=== PATIENT | male | born 1940 | race Caucasian/White ===

== ENCOUNTER → 2021-02-01 | Outpatient (CLI) | payer MEDICARE, BC ==
--- NOTE | 2021-02-01 17:50 | REPVR ---
PROCEDURE INFORMATION: Exam: MR Lumbar Spine Without Contrast Exam date and time: 02/01/2021 12:48 PM Age: 80 years old Clinical indication: Low back pain; Additional info: Lbp R/O hnp stenosis TECHNIQUE: Imaging protocol: Multiplanar magnetic resonance images of the lumbar spine without intravenous contrast. COMPARISON: No relevant prior studies available. FINDINGS: Vertebrae: Vertebral body heights are intact. Alignment is maintained. No pars defect is identified. Spinal cord: The conus is unremarkable in appearance, with its tip at the T12-L1 level. Multilevel findings: There are varying degrees of disc desiccation indicating intervertebral disc degeneration. Variable degenerative endplate changes are also present. L1-L2: Minimal bulge without significant neural foraminal narrowing or spinal stenosis. L2-L3: Small bulge leading to very mild bilateral neural foraminal narrowing without significant spinal stenosis. L3-L4: Small bulge combining with facet arthrosis to lead to very mild right and mild left neural foraminal narrowing without significant spinal stenosis. L4-L5: Disc osteophyte complex combining with facet arthrosis and ligamentum flavum hypertrophy to lead to mild to moderate right and mild left neural foraminal narrowing with very mild narrowing of the bilateral lateral recesses and borderline central canal stenosis. L5-S1: Disc osteophyte complex combining with facet arthrosis to lead to mild bilateral neural foraminal narrowing without significant spinal stenosis. Soft tissues: Unremarkable. IMPRESSION: Multilevel disc desiccation indicating intervertebral disk degeneration with disc displacements as described. COMMENTS: If surgery is considered, recommend level confirmation. Electronically signed by: Richard Davidson On 02/01/2021 17:50:03 PM
== END ==
LOC: M PLARAD 10:58
PROVIDERS: ATTEND Orthopaedic Surgery
DX: M54.5 Low back pain (principal)

== ENCOUNTER → 2021-03-26 | Outpatient (CLI) | payer MEDICARE, BC ==
--- NOTE | 2021-03-26 17:36 | REP ---
INDICATION: PAIN IN RIGHT LOWER LEG. COMPARISON: None. TECHNIQUE: Multiple ultrasonographic images of the deep venous structures of the right lower extremity were obtained from the inguinal ligament to the ankle. Venous compression techniques, color doppler imaging, and augmentation techniques were also obtained where appropriate. As per the ACR guidelines the anterior tibial vein can not be effectively evaluated. Only compression techniques in the calf on the peroneal and posterior tibial veins was attempted/performed. FINDINGS: There is no abnormal echogenic material seen within any of the visualized deep venous structures that would suggest acute thrombosis. Coaptation is unremarkable throughout. Doppler interrogation shows an expected response to respiratory variability and augmentation in the thigh. Compression techniques in the calf were unobtainable. The color flow images show what appears to be a normal vascular pattern throughout the thigh. IMPRESSION: There is no ultrasonographic evidence of deep venous thrombosis involving any of the visualized deep venous structures of the right lower extremity as described above. Due to technical parameters calf vein DVT can not be ruled out. <Electronically signed by Lacho Lechuga > 03/26/21 [id number]
== END ==
LOC: M RAD 16:35
PROVIDERS: ATTEND Physician Assistant
DX: M79.661 Pain in right lower leg (principal)

== ENCOUNTER → 2023-11-18 | Outpatient (CLI) | payer MEDICARE, BC ==
[2023-11-18 14:59] LABS: HEMATOCRIT 47.9 % (42.0-52.0); HEMOGLOBIN 16.4 g/dl (13.5-17.5); MEAN CORPUSCULAR HEMOGLOBIN 31.5 pg (27.0-33.0); MEAN CORPUSCULAR HGB CONC 34.2 g/dl (32.0-36.5); MEAN CORPUSCULAR VOLUME 92.1 fl (80.0-96.0); PLATELET COUNT, AUTOMATED 121 10^3/uL (150-450)
[2023-11-18 15:12] LABS: INR 1.25; PARTIAL THROMBOPLASTIN TIME 30.5 SECONDS (24.8-34.2); PROTHROMBIN TIME 15.3 SECONDS (12.5-14.5)
[2023-11-18 15:27] LABS: ALBUMIN 3.2 G/DL (3.2-5.2); BILIRUBIN,TOTAL 1.1 MG/DL (0.3-1.2); CALCIUM LEVEL 9.4 MG/DL (8.3-10.6); CREATININE FOR GFR 1.69 MG/DL (0.70-1.30); GLOMERULAR FILTRATION RATE 41.5 (>35); POTASSIUM SERUM 4.3 MMOL/L (3.5-5.1); TOTAL PROTEIN 6.8 G/DL (5.7-8.2)
== END ==
LOC: M LAB 14:31
PROVIDERS: ATTEND Nurse Practitioner Family
DX: D49.4 Neoplasm of unspecified behavior of bladder (principal)

== ENCOUNTER → 2023-11-26 | Outpatient (CLI) | payer MEDICARE, BC ==
[~2023-11-26] MED LIST: ISOVUE-370 76% 100ML VIAL ONE
== END ==
LOC: M PLAIMG 12:52
PROVIDERS: ATTEND Nurse Practitioner Family
DX: D49.4 Neoplasm of unspecified behavior of bladder (principal); R31.0 Gross hematuria
CPT/HCPCS: 74178; Q9967

== ENCOUNTER → 2024-04-25 | Outpatient (REF) | payer MEDICARE, BC ==
[2024-04-25 18:04] LABS: PERCENT SATURATION 39.4 % (19.7-50.0)
[2024-04-25 18:06] LABS: FERRITIN 1049.6 NG/ML (10.5-307.3)
== END ==
LOC: M LAB REF 16:29
PROVIDERS: ATTEND Internal Medicine
DX: D64.9 Anemia, unspecified (principal)

== ENCOUNTER 2024-05-09 22:14 | Emergency (ER) | payer MEDICARE, BC ==
[~2024-05-09] VITALS: Ht 180.3 cm; Wt 116.8 kg
[2024-05-09 22:29] VITALS: TEMP 98
[2024-05-09] MEDS: NS 500 ML IV ONE (22:35)
[2024-05-09] MEDS ORDERED: HYDROMORPHONE HCL 0.5 MG/ 0.5 ML SYRINGE IV PRN (22:45)
[2024-05-09 23:22] LABS: BASO % 0.5 % (0.0-1.0); EOS # 0.3 10^3/uL (0.0-0.5); EOS % 4.3 % (0.0-3.0); HEMATOCRIT 50.8 % (42.0-52.0); LYMPH # 2.7 10^3/uL (1.5-5.0); LYMPH % 35.7 % (24.0-44.0); MEAN CORPUSCULAR HEMOGLOBIN 31.6 pg (27.0-33.0); MEAN CORPUSCULAR HGB CONC 33.5 g/dl (32.0-36.5); MEAN CORPUSCULAR VOLUME 94.4 fl (80.0-96.0); MONO % 13.5 % (2.0-8.0); NEUTROPHILS # 3.4 10^3/uL (1.5-8.5); NEUTROPHILS % 45.9 % (36.0-66.0); PLATELET COUNT, AUTOMATED 117 10^3/uL (150-450); RED BLOOD COUNT 5.38 10^6/uL (4.30-6.10); WHITE BLOOD COUNT 7.5 10^3/uL (4.0-10.0)
[2024-05-09 23:49] LABS: BLOOD UREA NITROGEN 20 MG/DL (9-23); CARBON DIOXIDE LEVEL 24 MMOL/L (20-31); CHLORIDE LEVEL 112 MMOL/L (98-107); CREATININE FOR GFR 1.15 MG/DL (0.70-1.30); GLOMERULAR FILTRATION RATE > 60.0 (>35); GLUCOSE, FASTING 115 MG/DL (74-106); POTASSIUM SERUM 4.4 MMOL/L (3.5-5.1); SODIUM LEVEL 144 MMOL/L (136-145)
[2024-05-09] MEDS ORDERED: ISOVUE-370 76% 100ML VIAL As Ordered ONE (23:52)
[2024-05-10] MEDS: oxyBUTYnin 5 MG TAB PO STA (01:21)
[2024-05-10] MEDS: cefTRIAXone SOD 2 GM in D5W MINI-BAG PLUS 50 ML IV ONE (01:22)
[2024-05-10] MEDS ORDERED: OXYB5TAB14 PO (02:17)
[2024-05-10] MEDS ORDERED: CEFP200T PO (02:17)
[2024-05-10 02:41] VITALS: BP 151/72; O2SAT 98
== END 2024-05-10 02:44 | disposition home or self-care (01) ==
LOC: M ED 22:14 → EDBD 22:14 → M ED 05-10 02:44
DX: N39.0 Urinary tract infection, site not specified (principal); R30.1 Vesical tenesmus; I10 Essential (primary) hypertension; E78.5 Hyperlipidemia, unspecified; N40.0 Benign prostatic hyperplasia without lower urinary tract symptoms; Z85.51 Personal history of malignant neoplasm of bladder; Z88.8 Allergy status to other drugs, medicaments and biological substances; Z79.899 Other long term (current) drug therapy
CPT/HCPCS: 74177; 80048; 81001; 85025; 87086; 96360; 96361; 96365; 99284; J0696; Q9967

== ENCOUNTER → 2024-06-29 | Outpatient (REF) | payer MEDICARE, BC ==
[~2024-06-29] MED LIST changes: +CEFP200T PO; -ISOVUE-370 76% 100ML VIAL ONE; +OXYB5TAB14 PO
[2024-06-29 18:49] LABS: PERCENT SATURATION 30.6 % (19.7-50.0)
[2024-06-29 18:53] LABS: FERRITIN 427.4 NG/ML (10.5-307.3)
== END ==
LOC: M LAB REF 17:45
PROVIDERS: ATTEND Internal Medicine
DX: R53.83 Other fatigue (principal); D50.9 Iron deficiency anemia, unspecified

== ENCOUNTER 2024-09-29 14:50 | Inpatient (IN) | payer MEDICARE, BC ==
[~2024-09-29] VITALS: Ht 180.3 cm; Wt 115.4 kg
[2024-09-29] MEDS ORDERED: ELIQ5TAB PO (15:18)
[2024-09-29] MEDS ORDERED: HYDR12.55 PO (15:18)
[2024-09-29] MEDS ORDERED: METO1TAB32 PO (15:18)
[2024-09-29] MEDS ORDERED: CEPH500C PO (15:18)
[2024-09-29] MEDS ORDERED: ATOR40TA75 PO (15:18)
[2024-09-29] MEDS ORDERED: EZET10TA21 PO (15:18)
[2024-09-29] MEDS ORDERED: GABA-1635 PO (15:18)
[2024-09-29] MEDS ORDERED: LOSA50TA28 PO (15:18)
[2024-09-29 16:15] LABS: BASO % 0.4 % (0.0-1.0); EOS # 0.3 10^3/uL (0.0-0.5); EOS % 2.5 % (0.0-3.0); HEMATOCRIT 47.6 % (42.0-52.0); HEMOGLOBIN 16.1 g/dl (13.5-17.5); LYMPH # 1.9 10^3/uL (1.5-5.0); LYMPH % 17.7 % (24.0-44.0); MEAN CORPUSCULAR HEMOGLOBIN 31.1 pg (27.0-33.0); MEAN CORPUSCULAR HGB CONC 33.8 g/dl (32.0-36.5); MEAN CORPUSCULAR VOLUME 91.9 fl (80.0-96.0); MONO # 1.3 10^3/uL (0.0-0.8); MONO % 12.1 % (2.0-8.0); NEUTROPHILS # 7.2 10^3/uL (1.5-8.5); PLATELET COUNT, AUTOMATED 151 10^3/uL (150-450); RED BLOOD COUNT 5.18 10^6/uL (4.30-6.10); WHITE BLOOD COUNT 10.7 10^3/uL (4.0-10.0)
[2024-09-29 16:23] LABS: ERYTHROCYTE SEDIMENTATION RATE 48 mm/hr (0-20)
[2024-09-29 16:43] LABS: BLOOD UREA NITROGEN 19 MG/DL (9-23); C REACTIVE PROTEIN QUANTITATIV 2.19 MG/DL (<1.0); CALCIUM LEVEL 8.7 MG/DL (8.3-10.6); CARBON DIOXIDE LEVEL 28 MMOL/L (20-31); CHLORIDE LEVEL 103 MMOL/L (98-107); CREATININE FOR GFR 1.02 MG/DL (0.70-1.30); GLOMERULAR FILTRATION RATE > 60.0 (>35); GLUCOSE, FASTING 109 MG/DL (74-106); POTASSIUM SERUM 3.9 MMOL/L (3.5-5.1); SODIUM LEVEL 140 MMOL/L (136-145)
[2024-09-29] MEDS ORDERED: VANCOMYCIN HCL 1,500 MG in IV FLUID PLACE HOLDER 1 EA IV ONE (19:45)
[2024-09-29] MEDS: PIPERACILLIN/TAZOBACTAM SOD 4.5 GM in DEXTROSE 5% (D5W) ADV/MINI-BAG 50 ML IV ONE (21:01)
[2024-09-29] MEDS: VANCOMYCIN HCL 1,500 MG, VIAL MATE ADAPTER 1 EACH in NS 500 ML IV SCH (22:20)
[2024-09-30] MEDS ORDERED: MOM 30ML SUSPENSION UDC PO PRN (00:15)
[2024-09-30] MEDS ORDERED: MAALOX 30 ML SUSP *UDC PO PRN (00:15)
[2024-09-30] MEDS ORDERED: CALC250T PO (00:20)
[2024-09-30] MEDS ORDERED: B-COTAB10 PO (00:20)
[2024-09-30] MEDS ORDERED: FERR1TAB8 PO (00:20)
[2024-09-30] MEDS ORDERED: CHOL25TA2 PO (00:20)
[2024-09-30] MEDS ORDERED: HOME MED LIST COMPLETE! XX SCH (00:20)
[2024-09-30] MEDS ORDERED: GNP1000T11 PO (00:20)
[2024-09-30] MEDS ORDERED: OXYB5TAB14 PO (00:20)
[2024-09-30] MEDS ORDERED: VITA-259 PO (00:20)
[2024-09-30] MEDS: APIXABAN 5 MG TAB (ELIQUIS) PO SCH (00:50)
[2024-09-30] MEDS: GABAPENTIN 400MG CAP PO SCH (00:50)
[2024-09-30] MEDS: ceFAZolin SOD 2 GM in IV 1 EA IV SCH (00:51)
[2024-09-30] MEDS: CLOTRIMAZOLE 1% TOPICAL CREAM 30GM TOP SCH (01:01)
[2024-09-30 03:08] VITALS: BP 168/80; TEMP 97.7; O2SAT 96
[2024-09-30 08:15] VITALS: BP 140/71; TEMP 97.3; O2SAT 96
[2024-09-30] MEDS: EZETIMIBE 10MG TABLET (ZETIA) PO SCH (08:22)
[2024-09-30] MEDS: oxyBUTYnin 5 MG TAB PO SCH (08:23)
[2024-09-30] MEDS: hydroCHLOROthiazide 12.5 MG CAPSULE PO SCH (08:23)
[2024-09-30] MEDS: METOPROLOL SUCC *XL* 25MG TAB (TopROL *XL*) PO SCH (08:24)
[2024-09-30] MEDS: DOCUSATE SODIUM 100MG CAPSULE PO SCH (08:24)
[2024-09-30] MEDS ORDERED: LOSARTAN 50MG TABLET PO SCH (09:00)
[2024-09-30] MEDS: VITAMIN E 400 INTERNATIONAL UNITS CAP PO SCH (11:01)
[2024-09-30] MEDS: ACETAMINOPHEN 325 MG TAB PO PRN (11:38)
[2024-09-30 12:00] VITALS: BP 160/86; TEMP 97.3; O2SAT 98
[2024-09-30] MEDS ORDERED: NALOXONE INJ 0.4MG/1ML VIAL IV PRN (12:45)
[2024-09-30] MEDS: PERCOCET 5MG/325MG TAB PO PRN (13:12)
[2024-09-30] MEDS: NYSTATIN 100,000 UNITS/GM TOPICAL PWD 15GM TOP SCH (13:14)
[2024-09-30 14:30] VITALS: BP 142/72
[2024-09-30 14:53] LABS: BASO % 0.4 % (0.0-1.0); EOS # 0.4 10^3/uL (0.0-0.5); EOS % 3.4 % (0.0-3.0); HEMATOCRIT 46.1 % (42.0-52.0); HEMOGLOBIN 15.3 g/dl (13.5-17.5); LYMPH # 1.6 10^3/uL (1.5-5.0); LYMPH % 14.1 % (24.0-44.0); MEAN CORPUSCULAR HEMOGLOBIN 31.5 pg (27.0-33.0); MEAN CORPUSCULAR HGB CONC 33.2 g/dl (32.0-36.5); MEAN CORPUSCULAR VOLUME 94.9 fl (80.0-96.0); MONO # 1.4 10^3/uL (0.0-0.8); MONO % 12.2 % (2.0-8.0); NEUTROPHILS # 7.7 10^3/uL (1.5-8.5); NEUTROPHILS % 69.5 % (36.0-66.0); PLATELET COUNT, AUTOMATED 140 10^3/uL (150-450); RED BLOOD COUNT 4.86 10^6/uL (4.30-6.10)
[2024-09-30 15:18] LABS: BLOOD UREA NITROGEN 18 MG/DL (9-23); CALCIUM LEVEL 8.9 MG/DL (8.3-10.6); CARBON DIOXIDE LEVEL 30 MMOL/L (20-31); CHLORIDE LEVEL 106 MMOL/L (98-107); CREATININE FOR GFR 0.91 MG/DL (0.70-1.30); GLOMERULAR FILTRATION RATE > 60.0 (>35); GLUCOSE, FASTING 105 MG/DL (74-106); POTASSIUM SERUM 3.9 MMOL/L (3.5-5.1); SODIUM LEVEL 144 MMOL/L (136-145)
[2024-09-30] MEDS: BACLOFEN 5MG PER 1/2 TABLET PO ONE (15:59)
[2024-09-30 20:00] VITALS: BP 159/88; TEMP 97.5; O2SAT 96
[2024-09-30] MEDS: ATORVASTATIN 20 MG TAB PO SCH (21:43)
[2024-09-30] MEDS: LOSARTAN 50MG TABLET PO SCH (21:44)
[2024-10-01 04:00] VITALS: BP 137/91; TEMP 97.9; O2SAT 94
[2024-10-01 06:08] LABS: HEMATOCRIT 46.4 % (42.0-52.0); HEMOGLOBIN 15.4 g/dl (13.5-17.5); MEAN CORPUSCULAR HEMOGLOBIN 31.4 pg (27.0-33.0); MEAN CORPUSCULAR HGB CONC 33.2 g/dl (32.0-36.5); MEAN CORPUSCULAR VOLUME 94.5 fl (80.0-96.0); PLATELET COUNT, AUTOMATED 154 10^3/uL (150-450); RED BLOOD COUNT 4.91 10^6/uL (4.30-6.10); WHITE BLOOD COUNT 11.7 10^3/uL (4.0-10.0)
[2024-10-01 06:42] LABS: BLOOD UREA NITROGEN 16 MG/DL (9-23); CALCIUM LEVEL 8.5 MG/DL (8.3-10.6); CARBON DIOXIDE LEVEL 28 MMOL/L (20-31); CHLORIDE LEVEL 104 MMOL/L (98-107); CREATININE FOR GFR 0.99 MG/DL (0.70-1.30); GLOMERULAR FILTRATION RATE > 60.0 (>35); GLUCOSE, FASTING 102 MG/DL (74-106); MAGNESIUM LEVEL 1.9 MG/DL (1.8-2.4); POTASSIUM SERUM 3.7 MMOL/L (3.5-5.1); SODIUM LEVEL 143 MMOL/L (136-145)
[2024-10-01 12:00] VITALS: BP 120/68; TEMP 97.7; O2SAT 97
[2024-10-01 20:45] VITALS: BP 182/91; TEMP 99; O2SAT 95
[2024-10-01 20:48] VITALS: BP 166/72
[2024-10-01 23:30] VITALS: TEMP 97.6
[2024-10-02 04:35] VITALS: BP 129/60; TEMP 97.6; O2SAT 98
[2024-10-02] MEDS ORDERED: VANCOMYCIN HCL 1,000 MG in IV FLUID PLACE HOLDER 1 EA IV SCH (08:30)
[2024-10-02 08:54] LABS: BASO # 0.1 10^3/uL (0.0-0.2); BASO % 0.4 % (0.0-1.0); EOS # 0.6 10^3/uL (0.0-0.5); EOS % 4.7 % (0.0-3.0); HEMATOCRIT 49.7 % (42.0-52.0); HEMOGLOBIN 16.3 g/dl (13.5-17.5); LYMPH # 1.7 10^3/uL (1.5-5.0); LYMPH % 13.3 % (24.0-44.0); MEAN CORPUSCULAR HGB CONC 32.8 g/dl (32.0-36.5); MEAN CORPUSCULAR VOLUME 94.5 fl (80.0-96.0); MONO # 1.7 10^3/uL (0.0-0.8); MONO % 13.6 % (2.0-8.0); NEUTROPHILS # 8.6 10^3/uL (1.5-8.5); NEUTROPHILS % 67.7 % (36.0-66.0); PLATELET COUNT, AUTOMATED 168 10^3/uL (150-450); RED BLOOD COUNT 5.26 10^6/uL (4.30-6.10); WHITE BLOOD COUNT 12.6 10^3/uL (4.0-10.0)
[2024-10-02 09:00] LABS: ERYTHROCYTE SEDIMENTATION RATE 62 mm/hr (0-20)
[2024-10-02 09:23] LABS: BLOOD UREA NITROGEN 19 MG/DL (9-23); C REACTIVE PROTEIN QUANTITATIV 21.11 MG/DL (<1.0); CALCIUM LEVEL 8.5 MG/DL (8.3-10.6); CARBON DIOXIDE LEVEL 29 MMOL/L (20-31); CHLORIDE LEVEL 103 MMOL/L (98-107); CREATININE FOR GFR 0.92 MG/DL (0.70-1.30); GLOMERULAR FILTRATION RATE > 60.0 (>35); GLUCOSE, FASTING 102 MG/DL (74-106); POTASSIUM SERUM 3.4 MMOL/L (3.5-5.1); SODIUM LEVEL 141 MMOL/L (136-145)
[2024-10-02] MEDS: cefTRIAXone SOD 1 GM in DEXTROSE 5% (D5W) ADV/MINI-BAG 50 ML IV SCH (09:32)
[2024-10-02 09:35] LABS: PROCALCITONIN 0.14 ng/ml
[2024-10-02] MEDS: PERCOCET 5MG/325MG TAB PO PRN (09:36)
[2024-10-02] MEDS: VANCOMYCIN HCL 1,000 MG, VIAL MATE ADAPTER 1 EACH in NS 250 ML IV ONE (10:28)
[2024-10-02 12:00] VITALS: BP 145/70; TEMP 97.2; O2SAT 96
[2024-10-02] MEDS: VANCOMYCIN HCL 750 MG, VIAL MATE ADAPTER 1 EACH in NS 250 ML IV SCH (16:00)
[2024-10-02] MEDS: POTASSIUM CHLORIDE 10MEQ SR TABLET PO ONE (16:00)
[2024-10-02] MEDS: diphenhydrAMINE CREAM 30GM TOP SCH (18:05)
[2024-10-02 20:25] VITALS: BP 172/90; TEMP 97.9; O2SAT 97
[2024-10-02] MEDS: METOPROLOL TART 25 MG TABLET PO ONE (21:24)
[2024-10-03 03:56] VITALS: BP 155/77; TEMP 97.3; O2SAT 94
[2024-10-03] MEDS: METOPROLOL TART 25 MG TABLET PO SCH (05:45)
[2024-10-03 07:43] LABS: BASO # 0.1 10^3/uL (0.0-0.2); BASO % 0.4 % (0.0-1.0); EOS # 0.9 10^3/uL (0.0-0.5); EOS % 7.6 % (0.0-3.0); HEMATOCRIT 47.7 % (42.0-52.0); HEMOGLOBIN 15.7 g/dl (13.5-17.5); LYMPH # 1.5 10^3/uL (1.5-5.0); LYMPH % 13.3 % (24.0-44.0); MEAN CORPUSCULAR HEMOGLOBIN 31.2 pg (27.0-33.0); MEAN CORPUSCULAR HGB CONC 32.9 g/dl (32.0-36.5); MEAN CORPUSCULAR VOLUME 94.6 fl (80.0-96.0); MONO # 1.4 10^3/uL (0.0-0.8); MONO % 12.1 % (2.0-8.0); NEUTROPHILS # 7.5 10^3/uL (1.5-8.5); NEUTROPHILS % 66.3 % (36.0-66.0); PLATELET COUNT, AUTOMATED 178 10^3/uL (150-450); RED BLOOD COUNT 5.04 10^6/uL (4.30-6.10); WHITE BLOOD COUNT 11.3 10^3/uL (4.0-10.0)
[2024-10-03 08:08] LABS: BLOOD UREA NITROGEN 19 MG/DL (9-23); CALCIUM LEVEL 8.4 MG/DL (8.3-10.6); CARBON DIOXIDE LEVEL 30 MMOL/L (20-31); CHLORIDE LEVEL 104 MMOL/L (98-107); CREATININE FOR GFR 0.86 MG/DL (0.70-1.30); GLOMERULAR FILTRATION RATE > 60.0 (>35); GLUCOSE, FASTING 86 MG/DL (74-106); POTASSIUM SERUM 3.5 MMOL/L (3.5-5.1); SODIUM LEVEL 142 MMOL/L (136-145)
[2024-10-03 12:00] VITALS: BP 139/68; TEMP 97.3; O2SAT 100
[2024-10-03] MEDS ORDERED: diphenhydrAMINE CREAM 30GM TOP SCH (13:00)
[2024-10-03] MEDS: TRIAMCINOLONE ACET 0.1% OINTMENT 80GM TOP SCH (13:51)
[2024-10-03] MEDS: diphenhydrAMINE CREAM 30GM TOP SCH (13:51)
[2024-10-03] MEDS: VANCOMYCIN HCL 1,000 MG, VIAL MATE ADAPTER 1 EACH in NS 250 ML IV SCH (17:31)
[2024-10-03 20:35] VITALS: BP 149/64; TEMP 97.7; O2SAT 96
[2024-10-04 04:01] VITALS: BP 141/67; TEMP 97.3; O2SAT 94
[2024-10-04 05:23] LABS: BASO # 0.1 10^3/uL (0.0-0.2); BASO % 0.7 % (0.0-1.0); EOS # 0.9 10^3/uL (0.0-0.5); EOS % 8.5 % (0.0-3.0); HEMATOCRIT 46.9 % (42.0-52.0); HEMOGLOBIN 15.6 g/dl (13.5-17.5); LYMPH # 1.6 10^3/uL (1.5-5.0); MEAN CORPUSCULAR HEMOGLOBIN 30.9 pg (27.0-33.0); MEAN CORPUSCULAR HGB CONC 33.3 g/dl (32.0-36.5); MEAN CORPUSCULAR VOLUME 92.9 fl (80.0-96.0); MONO # 1.4 10^3/uL (0.0-0.8); MONO % 12.6 % (2.0-8.0); NEUTROPHILS # 6.8 10^3/uL (1.5-8.5); PLATELET COUNT, AUTOMATED 199 10^3/uL (150-450); RED BLOOD COUNT 5.05 10^6/uL (4.30-6.10); WHITE BLOOD COUNT 10.7 10^3/uL (4.0-10.0)
[2024-10-04 05:49] LABS: BLOOD UREA NITROGEN 22 MG/DL (9-23); CALCIUM LEVEL 8.4 MG/DL (8.3-10.6); CARBON DIOXIDE LEVEL 28 MMOL/L (20-31); CHLORIDE LEVEL 107 MMOL/L (98-107); CREATININE FOR GFR 0.89 MG/DL (0.70-1.30); GLOMERULAR FILTRATION RATE > 60.0 (>35); GLUCOSE, FASTING 92 MG/DL (74-106); POTASSIUM SERUM 3.8 MMOL/L (3.5-5.1); SODIUM LEVEL 145 MMOL/L (136-145)
[2024-10-04 12:15] VITALS: TEMP 97.5; O2SAT 94
[2024-10-04] MEDS: VANCOMYCIN HCL 1,750 MG, VIAL MATE ADAPTER 1 EACH in NS 500 ML IV ONE (18:46)
[2024-10-04 20:52] VITALS: BP 149/62; TEMP 97.7; O2SAT 97
[2024-10-05 03:52] VITALS: BP 138/76; TEMP 97.3; O2SAT 95
[2024-10-05 07:44] LABS: BASO # 0.1 10^3/uL (0.0-0.2); BASO % 0.6 % (0.0-1.0); EOS # 0.7 10^3/uL (0.0-0.5); EOS % 7.2 % (0.0-3.0); HEMATOCRIT 48.1 % (42.0-52.0); LYMPH # 1.7 10^3/uL (1.5-5.0); LYMPH % 16.7 % (24.0-44.0); MEAN CORPUSCULAR HEMOGLOBIN 31.1 pg (27.0-33.0); MEAN CORPUSCULAR HGB CONC 33.3 g/dl (32.0-36.5); MEAN CORPUSCULAR VOLUME 93.4 fl (80.0-96.0); MONO # 1.2 10^3/uL (0.0-0.8); NEUTROPHILS # 6.4 10^3/uL (1.5-8.5); NEUTROPHILS % 63.3 % (36.0-66.0); PLATELET COUNT, AUTOMATED 208 10^3/uL (150-450); RED BLOOD COUNT 5.15 10^6/uL (4.30-6.10); WHITE BLOOD COUNT 10.1 10^3/uL (4.0-10.0)
[2024-10-05 08:02] LABS: BLOOD UREA NITROGEN 20 MG/DL (9-23); CALCIUM LEVEL 8.1 MG/DL (8.3-10.6); CARBON DIOXIDE LEVEL 29 MMOL/L (20-31); CHLORIDE LEVEL 107 MMOL/L (98-107); GLOMERULAR FILTRATION RATE > 60.0 (>35); GLUCOSE, FASTING 98 MG/DL (74-106); POTASSIUM SERUM 3.8 MMOL/L (3.5-5.1); SODIUM LEVEL 144 MMOL/L (136-145)
[2024-10-05] MEDS: VANCOMYCIN HCL 1,250 MG, VIAL MATE ADAPTER 1 EACH in NS 250 ML IV SCH (08:29)
[2024-10-05] MEDS ORDERED: METO1TAB32 PO (11:33)
[2024-10-05] MEDS ORDERED: PROBCAP14 PO (11:33)
[2024-10-05] MEDS ORDERED: DOXY100T PO (11:33)
[2024-10-05] MEDS ORDERED: PERCOCET PO (11:33)
[2024-10-05] MEDS ORDERED: CEFD300CAP PO (11:33)
[2024-10-05] MEDS ORDERED: CLOTR1CR TOP (11:33)
[2024-10-05 12:15] VITALS: BP 155/99
== END 2024-10-05 13:46 | disposition home or self-care (01) | DRG 603 ==
LOC: M ED 14:50 → M ED INP 09-30 00:12 → M MSPAV 09-30 03:05
PROVIDERS: ADMIT Student in an Organized Health Care Education/Training Program; ATTEND Internal Medicine Nephrology
DX: L03.115 Cellulitis of right lower limb (principal); I50.32 Chronic diastolic (congestive) heart failure; I48.91 Unspecified atrial fibrillation; I25.10 Atherosclerotic heart disease of native coronary artery without angina pectoris; G47.33 Obstructive sleep apnea (adult) (pediatric); E66.01 Morbid (severe) obesity due to excess calories; I71.40 Abdominal aortic aneurysm, without rupture, unspecified; S82.61XA Displaced fracture of lateral malleolus of right fibula, initial encounter for closed fracture; W22.03XA Walked into furniture, initial encounter; I11.0 Hypertensive heart disease with heart failure; I73.9 Peripheral vascular disease, unspecified; I77.1 Stricture of artery; N40.0 Benign prostatic hyperplasia without lower urinary tract symptoms; E78.5 Hyperlipidemia, unspecified; Z79.01 Long term (current) use of anticoagulants; Z79.899 Other long term (current) drug therapy; Z88.8 Allergy status to other drugs, medicaments and biological substances; Z98.41 Cataract extraction status, right eye; Z98.42 Cataract extraction status, left eye; Z95.2 Presence of prosthetic heart valve; Y92.9 Unspecified place or not applicable; Z85.828 Personal history of other malignant neoplasm of skin; Z85.51 Personal history of malignant neoplasm of bladder

== ENCOUNTER → 2024-10-19 | Outpatient (REF) | payer MEDICARE, BC ==
[~2024-10-19] MED LIST changes: +ATOR40TA75 PO; +B-COTAB10 PO; +CALC250T PO; +CEFD300CAP PO; +CEPH500C PO; +CHOL25TA2 PO; +CLOTR1CR TOP; +DOXY100T PO; +ELIQ5TAB PO; +EZET10TA21 PO; +FERR1TAB8 PO; +GABA-1635 PO; +GNP1000T11 PO; +HYDR12.55 PO; +LOSA50TA28 PO; +METO1TAB32 PO; +PERCOCET PO; +PROBCAP14 PO; +VITA-259 PO
== END ==
LOC: M SFHCDERM 16:56
PROVIDERS: ATTEND Physician Assistant
DX: Z48.89 Encounter for other specified surgical aftercare (principal)

== ENCOUNTER 2024-11-27 10:48 | Emergency (ER) | payer MEDICARE, BC ==
[~2024-11-27] VITALS: Ht 180.3 cm; Wt 112.3 kg
[2024-11-27 11:31] LABS: BASO # 0.1 10^3/uL (0.0-0.2); BASO % 0.6 % (0.0-1.0); EOS # 0.3 10^3/uL (0.0-0.5); HEMATOCRIT 50.4 % (42.0-52.0); HEMOGLOBIN 16.5 g/dl (13.5-17.5); LYMPH # 2.2 10^3/uL (1.5-5.0); LYMPH % 25.3 % (24.0-44.0); MEAN CORPUSCULAR HGB CONC 32.7 g/dl (32.0-36.5); MEAN CORPUSCULAR VOLUME 94.7 fl (80.0-96.0); MONO # 0.8 10^3/uL (0.0-0.8); MONO % 9.4 % (2.0-8.0); NEUTROPHILS # 5.2 10^3/uL (1.5-8.5); NEUTROPHILS % 60.3 % (36.0-66.0); PLATELET COUNT, AUTOMATED 133 10^3/uL (150-450); RED BLOOD COUNT 5.32 10^6/uL (4.30-6.10); WHITE BLOOD COUNT 8.5 10^3/uL (4.0-10.0)
[2024-11-27 11:42] LABS: INR 1.18; PROTHROMBIN TIME 15.3 SECONDS (12.5-14.5)
[2024-11-27 11:52] LABS: CALCIUM LEVEL 9.1 MG/DL (8.3-10.6); CREATININE FOR GFR 1.11 MG/DL (0.70-1.30); GLOMERULAR FILTRATION RATE 65.5 (>35)
[2024-11-27 13:11] VITALS: BP 120/59; TEMP 97.3; O2SAT 98
== END 2024-11-27 13:15 | disposition home or self-care (01) ==
LOC: M ED 10:48
DX: R22.41 Localized swelling, mass and lump, right lower limb (principal); I48.91 Unspecified atrial fibrillation; I25.119 Atherosclerotic heart disease of native coronary artery with unspecified angina pectoris; I10 Essential (primary) hypertension; G47.33 Obstructive sleep apnea (adult) (pediatric); Z88.8 Allergy status to other drugs, medicaments and biological substances; Z79.01 Long term (current) use of anticoagulants; Z79.899 Other long term (current) drug therapy

== ENCOUNTER → 2025-03-13 | Outpatient (CLI) | payer MEDICARE, BC ==
[~2025-03-13] MED LIST changes: +CEFD1CAP9 PO
== END ==
LOC: M PLAIMG 11:05
PROVIDERS: ATTEND Physician Assistant
DX: M16.11 Unilateral primary osteoarthritis, right hip (principal); M71.351 Other bursal cyst, right hip

== ENCOUNTER → 2025-05-04 | Outpatient (CLI) | payer MEDICARE, BC ==
[~2025-05-04] MED LIST changes: -EZET10TA21 PO; +EZET10TA57 PO; +ISOVUE-300 61% 100 ML VIAL As Ordered ONE; +LIDOCAINE 1% MDV 20 ML VIAL As Ordered ONE; +methylPREDNISolone SUSP 40 MG/ML 1 ML VIAL As Ordered ONE
== END ==
LOC: M RAD 14:11
PROVIDERS: ATTEND Physician Assistant
DX: M16.11 Unilateral primary osteoarthritis, right hip (principal)
CPT/HCPCS: 20610; 77002; J1010; Q9967